=== PATIENT | male | born 1975 | race Caucasian/White ===

== ENCOUNTER 2022-02-02 09:24 | Inpatient (IN) | payer OTHER ==
[~2022-02-02] VITALS: Ht 182.9 cm; Wt 69.0 kg
[2022-02-02] MEDS ORDERED: IV NORMAL SALINE 1000ML BAG 1,000 ML IV ONE (10:00)
--- NOTE | 2022-02-02 10:04 | PHYS DOC ---
Past Medical History Additional Past Medical Histor: POLYSYSTIC KIDNEY DISEASE Past Surgical History: Other Additional Past Surgical Histo: HERNIA, VASCECTOMY Smoking Status: Never Smoker Alcohol Use: None Drug Use: None General Adult EDM: Chief Complaint: DIZZY/LIGHT HEADED HPI: HPI: Patient is a 46-year-old male that presents today after syncopal episode on Saturday. Patient states that he was in mediation talks with his on Saturday for approximately 6 hours says that he was leaving the room, with peanuts which she was snacking on during the talks, he said he woke up on the floor. Patient does not recall if he had any meals that day he states that he is currently going through a divorce and he has not been eating regularly he says he drinks approximately 1 gallon of water a day, and he says he talked to his daughter who is a nurse and talk to his primary care physician and they both recommended that he come to the emergency department for evaluation today. Patient denies chest pain, shortness of air, nausea vomiting, or fever and chills. Patient does not have a past medical history of heart disease or hypertension, he does have a history of polycystic kidney disease. Review of Systems: Review of Systems: Constitutional: Denies fever or chills. [] Eyes: Denies change in visual acuity. [] HENT: Denies nasal congestion or sore throat. [] Respiratory: Denies cough or shortness of breath. [] Cardiovascular: Denies chest pain or edema. [] GI: Denies abdominal pain, nausea, vomiting, bloody stools or diarrhea. [] : Denies dysuria. [] Musculoskeletal: Denies back pain or joint pain. [] Integument: Denies rash. [] Neurologic: syncopal episode Denies headache, focal weakness or sensory changes. [] Endocrine: Denies polyuria or polydipsia. [] Lymphatic: Denies swollen glands. [] Psychiatric: Denies depression or anxiety. [] Heart Score: C/O Chest Pain: N/A Risk Factors: Risk Factors: DM, Current or recent (<one month) smoker, HTN, HLP, family history of CAD, obesity. Risk Scores: Score 0 - 3: 2.5% MACE over next 6 weeks - Discharge Home Score 4 - 6: 20.3% MACE over next 6 weeks - Admit for Clinical Observation Score 7 - 10: 72.7% MACE over next 6 weeks - Early Invasive Strategies Current Medications: Current Medications Medications (Trade) Dose Ordered Sig/[facility] Start Time Stop Time Status Last Admin Dose Admin Sodium Chloride 1,000 ml @ 999 mls/hr 1X ONCE 02/02/22 10:00 02/02/22 11:00 Allergies: Allergies: Allergies Coded Allergies Type Severity Reaction Last Updated Verified No Known Drug Allergies 02/02/22 No Physical Exam: PE: Constitutional: Well developed, well nourished, no acute distress, non-toxic appearance. [] HENT: Normocephalic, atraumatic, bilateral external ears normal, oropharynx moist, no oral exudates, nose normal. [] Eyes: PERRLA, EOMI, conjunctiva normal, no discharge. [] Neck: Normal range of motion, no tenderness, supple, no stridor. [] Cardiovascular:Heart rate regular rhythm, no murmur [] Lungs & Thorax: Bilateral breath sounds clear to auscultation [] Abdomen: Bowel sounds normal, soft, no tenderness, no masses, no pulsatile masses. [] Skin: Warm, dry, no erythema, no rash. [] Back: No tenderness, no CVA tenderness. [] Extremities: No tenderness, no cyanosis, no clubbing, ROM intact, no edema., Neurologic: Alert and oriented X 3, normal motor function, normal sensory function, no focal deficits noted. [] Psychologic: Affect normal, judgement normal, mood normal. [] Current Patient Data: Labs: Laboratory Tests Test 02/02/22 09:50 02/02/22 10:00 02/02/22 12:37 Urine Collection Type Unknown Urine Color Yellow Urine Clarity Clear Urine pH 5.5 Urine Specific [place] 1.025 Urine Protein Negative mg/dL Urine Glucose (UA) Negative mg/dL Urine Ketones (Stick) >=80 mg/dL Urine Blood Trace Urine Nitrite Negative Urine Bilirubin Small Urine Urobilinogen Dipstick 0.2 mg/dL Urine Leukocyte Esterase Negative Urine RBC 0 /HPF Urine WBC 0 /HPF Urine Squamous Epithelial Cells Few /LPF Urine Bacteria 0 /HPF Urine Hyaline Casts Occasional /HPF Urine Opiates Screen Neg Urine Methadone Screen Neg Urine Barbiturates Neg Urine Phencyclidine Screen Neg Urine Amphetamine/Methamphetamine Neg Urine Benzodiazepines Screen Neg Urine Cocaine Screen Neg Urine Cannabinoids Screen Neg Urine Ethyl Alcohol Neg White Blood Count 4.9 x10^3/uL Red Blood Count 5.64 x10^6/uL Hemoglobin 16.4 g/dL Hematocrit 48.6 % Mean Corpuscular Volume 86 fL Mean Corpuscular Hemoglobin 29 pg Mean Corpuscular Hemoglobin Concent 34 g/dL Red Cell Distribution Width 13.3 % Platelet Count 330 x10^3/uL Neutrophils (%) (Auto) 64 % Lymphocytes (%) (Auto) 26 % Monocytes (%) (Auto) 6 % Eosinophils (%) (Auto) 3 % Basophils (%) (Auto) 1 % Neutrophils # (Auto) 3.2 x10^3/uL Lymphocytes # (Auto) 1.3 x10^3/uL Monocytes # (Auto) 0.3 x10^3/uL Eosinophils # (Auto) 0.2 x10^3/uL Basophils # (Auto) 0.0 x10^3/uL D-Dimer (Maritza) < 0.27 ug/mlFEU Sodium Level 137 mmol/L Potassium Level 4.3 mmol/L Chloride Level 97 mmol/L Carbon Dioxide Level 17 mmol/L Anion Gap 23 Blood Urea Nitrogen 15 mg/dL Creatinine 1.2 mg/dL Estimated GFR (Cockcroft-Gault) 65.5 BUN/Creatinine Ratio 13 Glucose Level 66 mg/dL Calcium Level 9.4 mg/dL Total Bilirubin 0.7 mg/dL Aspartate Amino Transf (AST/SGOT) 26 U/L Alanine Aminotransferase (ALT/SGPT) 21 U/L Alkaline Phosphatase 73 U/L Total Protein 9.3 g/dL Albumin 5.0 g/dL Albumin/Globulin Ratio 1.2 Thyroid Stimulating Hormone (TSH) 2.101 uIU/mL Free Triiodothyronine (T3) pg/mL 2.11 pg/mL SARS-CoV-2 Antigen (Rapid) Negative Current Medications Medications (Trade) Dose Ordered Sig/Mary Beth Route PRN Reason Start Time Stop Time Status Last Admin Dose Admin Sodium Chloride 1,000 ml @ 999 mls/hr 1X ONCE IV 02/02/22 10:00 02/02/22 11:00 DC 02/02/22 10:03 Atropine Sulfate (ATROPINE 0.5mg SYRINGE) 0.5 mg STK-MED ONCE .ROUTE 02/02/22 10:08 02/02/22 10:09 DC Atropine Sulfate (ATROPINE 1mg SYRINGE) 1 mg STK-MED ONCE .ROUTE 02/02/22 10:09 02/02/22 10:10 DC Atropine Sulfate (ATROPINE 1mg SYRINGE) 1 mg 1X ONCE IV 02/02/22 10:30 02/02/22 10:31 DC 02/02/22 10:13 Vital Signs: Vital Signs Date Time Temp Pulse Resp B/P (MAP) Pulse Ox O2 Delivery O2 Flow Rate FiO2 02/02/22 19:28 Room Air 02/02/22 19:24 98.1 60 18 114/72 (86) 100 Room Air 98.1 02/02/22 15:00 97.3 67 18 110/64 (79) 100 Room Air 97.3 02/02/22 13:40 Room Air 02/02/22 12:52 82 17 111/89 (96) 100 Room Air 02/02/22 12:22 82 116/74 (88) 100 Room Air 02/02/22 11:52 102 134/69 (90) 100 Room Air 02/02/22 11:22 72 98/63 (75) 100 Room Air 02/02/22 10:52 84 101/68 (79) 100 Room Air 02/02/22 10:22 100 19 107/68 (81) 98 Room Air 02/02/22 10:10 34 111/81 (91) 97 Room Air 02/02/22 09:52 128/91 (103) 93 Room Air 02/02/22 09:24 98.7 88 17 159/85 (109) 98 Room Air 98.7 Vital Signs Date Time Temp Pulse Resp B/P (MAP) Pulse Ox O2 Delivery O2 Flow Rate FiO2 02/02/22 09:24 98.7 88 17 159/85 (109) 98 Room Air 98.7 EKG: EKG: EKG #1 EKG done at [address] Last at 934 shows sinus rhythm with no ectopy at a rate of 80 CO interval of 136 ms with a QTC of 423 ms no STEMI EKG #2 EKG [place] [address] Last at 1009 shows a rate of 30 sinus bradycardia symptomatic EKG #3 EKG done at [address] Last at 1015 shows sinus tachycardia no ectopy at a rate of 108 with a CO interval of 144 ms with a QTC of 459 ms. No STEMI [] Radiology/Procedures: Radiology/Procedures: [REASON: syncope, NOT READY@1018 PROCEDURE: CHEST AP ONLY XR CHEST 1V History: Syncope Comparison: None. Technique: AP radiograph of the chest. Findings: The lungs are hyperinflated. No airspace consolidation, pleural effusion or pneumothorax. The cardiomediastinal silhouette and pulmonary vasculature are within normal limits. No acute osseous abnormality. Soft tissues are unremarkable. Resuscitation pads overlie the chest. Impression: 1. No acute cardiopulmonary process. Electronically signed by: Nguyễn Chahal MD (02/02/2022 10:40 AM) [id number]] Course & Med Decision Making: Course & Med Decision Making Pertinent Labs and Imaging studies reviewed. (See chart for details) 1010 patient was found to have a heart rate less then 35 bpm we went to the bedside EKG was done shows a rate of between 28-32 bpm, Dr. Flores was at bedside, 1 mg of atropine was given with a desired result of a heart rate increasing to 85 bpm. Patient was presyncopal and diaphoretic during the episode states he did not feel well and states he felt very similar to what he did 2 days ago when he had a syncopal episode. Cardiology paged. 1059 spoke to cardiology regarding this patient. [id number] Florian from hospitalist service and reviewed this case with him and he is agreeable to admitting the patient with a consultation to cardiology for symptomatic bradycardia. Spoke to patient he is agreeable to admitting. Radhames Disclaimer: Radhames Disclaimer: This electronic medical record was generated, in whole or in part, using a voice recognition dictation system. Departure Departure Impression: Primary Impression: Syncope Qualified Codes: R55 - Syncope and collapse Additional Impression: Bradycardia Disposition: ADMITTED INPATIENT Admitting Physician: JUAN Condition: GUARDED LILLY RUIZ APRN Feb 02, 2022 10:03
[2022-02-02] MEDS ORDERED: ATROPINE 0.5 MG/5 ML DISP.SYRINGE. ONE (10:08)
[2022-02-02] MEDS ORDERED: ATROPINE 1 MG/10 ML DISP.SYRINGE. ONE (10:09)
[2022-02-02 10:19] LABS: BARBITURATES NEG (NEG); BENZODIAZEPINES NEG (NEG); CANNABINOIDS NEG (NEG); COCAINE NEG (NEG); METHADONE NEG (NEG); OPIATES NEG (NEG); PHENCYCLIDINE NEG (NEG)
[2022-02-02 10:20] LABS: AMPHETAMINE/METHAMPHETAMINE NEG (NEG)
[2022-02-02] MEDS ORDERED: ATROPINE 1 MG/10 ML DISP.SYRINGE. IV ONE (10:30)
[2022-02-02 10:35] LABS: ALBUMIN/GLOBULIN RATIO 1.2 (1.0-1.7); CALCIUM 9.4 mg/dL (8.5-10.1); CREATININE 1.2 mg/dL (0.7-1.3); GFR 65.5; POTASSIUM 4.3 mmol/L (3.5-5.1); TOTAL BILIRUBIN 0.7 mg/dL (0.2-1.0); TOTAL PROTEIN 9.3 g/dL (6.4-8.2)
--- NOTE | 2022-02-02 10:42 | RAD ---
XR CHEST 1V History: Syncope Comparison: None. Technique: AP radiograph of the chest. Findings: The lungs are hyperinflated. No airspace consolidation, pleural effusion or pneumothorax. The cardiom ediastinal silhouette and pulmonary vasculature are within normal limits. No acute osseous abnormalit y. Soft tissues are unremarkable. Resuscitation pads overlie the chest. Impression: 1. No acute cardiopulmonary process. Electronically signed by: Nguyễn Chahal MD (02/02/2022 10:40 AM) [id number]
[2022-02-02 10:50] LABS: BILIRUBIN,URINE SMALL (NEG); CLARITY,URINE CLEAR; COLOR,URINE YELLOW; NITRITE,URINE NEGATIVE (NEG); PH,URINE 5.5 (<5.0-8.0); PROTEIN,URINE NEGATIVE (NEG-TRACE); UROBILINOGEN,URINE 0.2 mg/dL (0.2 mg/dL)
[2022-02-02 10:52] LABS: BASO % 1 % (0-3); EOS # 0.2 x10^3/uL (0.0-0.7); EOS % 3 % (0-3); HEMATOCRIT 48.6 % (39.0-53.0); HEMOGLOBIN 16.4 g/dL (13.0-17.5); LYMPH # 1.3 x10^3/uL (1.0-4.8); LYMPH % 26 % (24-48); MEAN CORPUSCULAR HEMOGLOBIN 29 pg (25-35); MEAN CORPUSCULAR HGB CONC 34 g/dL (31-37); MEAN CORPUSCULAR VOLUME 86 fL (79-100); MONO # 0.3 x10^3/uL (0.0-1.1); MONO % 6 % (0-9); NEUT # 3.2 x10^3/uL (1.8-7.7); NEUT % 64 % (31-73); PLATELET COUNT 330 x10^3/uL (140-400); RED BLOOD COUNT 5.64 x10^6/uL (4.30-5.70); RED CELL DISTRIBUTION WIDTH 13.3 % (11.5-14.5); WHITE BLOOD COUNT 4.9 x10^3/uL (4.0-11.0)
[2022-02-02 10:53] LABS: BACTERIA,URINE 0 /HPF (0-FEW); HYALINE CASTS, URINE OCCASIONAL /HPF; RBC,URINE 0 /HPF (0-2); WBC,URINE 0 /HPF (0-4)
--- NOTE | 2022-02-02 10:59 | PDOC2 ---
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 Reports passing out while having an "heavy" conversation with his . Unclear duration but he started not feeling well at that time and dizzy then fell to the floor with no apparent injury. No seizure like symptoms. He does have occasional dizziness but not long lasting and this is the fiirst time he passed out. He finally called his PCP today and was told to go to ED. He was getting SL and IV when he felt that his surrounding was blacking out and did not feel and about to pass out and his HR was SB in the 20s and was given atropine which then corrected his HR to SR. No recent falls or injury. He said he possibly had covid-19 in 2019 and his flu like symptoms lasted for a week with loss of taste or smell. No prior hx of CAD,VTE, or arrhythmias. PAST MEDICAL HISTORY Past Medical History No pertinent history Renal/: Other (PKD) PAST SURGICAL HISTORY Past Surgical History: Hernia Repair, Other (vasecomy) FAMILY HISTORY Family History: Heart Disease (grandparents) SOCIAL HISTORY Smoke: No ALCOHOL: none Drugs: None Lives: with Family CURRENT MEDICATIONS CURRENT MEDICATIONS Current Medications Medications (Trade) Dose Ordered Sig/Mary Beth Route PRN Reason Start Time Stop Time Status Last Admin Dose Admin Sodium Chloride 1,000 ml @ 999 mls/hr 1X ONCE IV 02/02/22 10:00 02/02/22 11:00 02/02/22 10:03 Atropine Sulfate (ATROPINE 1mg SYRINGE) 1 mg 1X ONCE IV 02/02/22 10:30 02/02/22 10:31 DC 02/02/22 10:13 ALLERGIES ALLERGIES: Coded Allergies: No Known Drug Allergies (Unverified , 02/02/22) ROS Review of System 14 point ROS evaluated with pertinent positives noted per HPI PHYSICAL EXAM General: Alert, Oriented X3, Cooperative, No acute distress HEENT: Atraumatic, Mucous membr. moist/pink Lungs: Clear to auscultation, Normal air movement Heart: Regular rate, Normal S1, Normal S2, No murmurs Abdomen: Soft, No tenderness Extremities: No cyanosis, No edema Skin: No breakdown, No significant lesion Neuro: Normal speech, Sensation intact Psych/Mental Status: Mental status NL, Mood NL MUSCULOSKELETAL: Full range of motion without pain VITALS/I&O VITALS/I&O: Vital Signs Date Time Temp Pulse Resp B/P (MAP) Pulse Ox O2 Delivery O2 Flow Rate FiO2 02/02/22 10:22 100 19 107/68 (81) 98 Room Air 02/02/22 09:24 98.7 98.7 LABS Lab: Laboratory Tests Test 02/02/22 09:50 02/02/22 10:00 Urine Collection Type Unknown Urine Color Yellow Urine Clarity Clear Urine pH 5.5 (<5.0-8.0) Urine Specific [place] 1.025 (1.000-1.030) Urine Protein Negative mg/dL (NEG-TRACE) Urine Glucose (UA) Negative mg/dL (NEG) Urine Ketones (Stick) >=80 mg/dL (NEG) Urine Blood Trace (NEG) Urine Nitrite Negative (NEG) Urine Bilirubin Small (NEG) Urine Urobilinogen Dipstick 0.2 mg/dL (0.2 mg/dL) Urine Leukocyte Esterase Negative (NEG) Urine RBC 0 /HPF (0-2) Urine WBC 0 /HPF (0-4) Urine Squamous Epithelial Cells Few /LPF Urine Bacteria 0 /HPF (0-FEW) Urine Hyaline Casts Occasional /HPF Urine Opiates Screen Neg (NEG) Urine Methadone Screen Neg (NEG) Urine Barbiturates Neg (NEG) Urine Phencyclidine Screen Neg (NEG) Urine Amphetamine/Methamphetamine Neg (NEG) Urine Benzodiazepines Screen Neg (NEG) Urine Cocaine Screen Neg (NEG) Urine Cannabinoids Screen Neg (NEG) Urine Ethyl Alcohol Neg (NEG) D-Dimer (Maritza) < 0.27 ug/mlFEU Sodium Level 137 mmol/L (136-145) Potassium Level 4.3 mmol/L (3.5-5.1) Chloride Level 97 mmol/L (98-107) L Carbon Dioxide Level 17 mmol/L (21-32) L Anion Gap 23 (6-14) H Blood Urea Nitrogen 15 mg/dL (8-26) Creatinine 1.2 mg/dL (0.7-1.3) Estimated GFR (Cockcroft-Gault) 65.5 BUN/Creatinine Ratio 13 (6-20) Glucose Level 66 mg/dL (70-99) L Calcium Level 9.4 mg/dL (8.5-10.1) Total Bilirubin 0.7 mg/dL (0.2-1.0) Aspartate Amino Transferase (AST) 26 U/L (15-37) Alanine Aminotransferase (ALT) 21 U/L (16-63) Alkaline Phosphatase 73 U/L (46-116) Total Protein 9.3 g/dL (6.4-8.2) H Albumin 5.0 g/dL (3.4-5.0) Albumin/Globulin Ratio 1.2 (1.0-1.7) Laboratory Tests 02/02/22 10:00 ASSESSMENT/PLAN ASSESSMENT/PLAN 1. Symptomatic sinsu bradycardia: corrected with atropine 2. Syncope with nontraumatic fall: occurred 2 days ago 3. Hypoglycemia: has not been eating well in the last 3 days. noted BG at 66. per PCP 4. Anion gap metabolic acidosis Recommendations 1. He does have vasovagal component but with profound symptoms. He will need a PPM and discussed this with him but at this time he is refusing. Discussed risks of not having a PPM but refuses. Will arrange for outpt ILR 2. Obtain TSH, TTE 3. Monitor rhythm overnight. 4. IVF received CHAD BONE MD 02/02/22 1325: CARDIAC CONSULT ASSESSMENT/PLAN ASSESSMENT/PLAN Patient seen and examined. Agree with INTERIOR DESIGN COORDINATOR's assessment and plan. Clinical picture consistent with vasovagal etiology but patient seems to have recurrent profound symptomatic bradycardia The option of permanent pacemaker implantation was discussed but he would like to hold off on that. We will plan for Loop recorder implantation as an outpatient for more prolonged monitoring Check 2D echo to assess LV systolic function Thank you for your consultation JOYCE KOCH APRN Feb 02, 2022 10:59 CHAD BONE MD Feb 02, 2022 13:25
[2022-02-02 11:06] LABS: THYROID STIM HORMONE (TSH) 2.101 uIU/mL (0.358-3.74)
--- NOTE | 2022-02-02 11:32 | PDOC1 ---
History and Physical Date of Service: DOS: DATE: 02/02/22 TIME: 11:27 Chief Complaint: Chief Complain: Syncope History of Present Illness: HPI: 46-year-old male with no significant past medical history except for polycystic kidney disease who comes in after a syncopal episode on Saturday. He apparently was having an argument with his when he left his room and caring a plate of peanuts and next thing he remembered he was on the floor and the drop of his plate. Patient states that he is well-hydrated and talk to his nurse and primary care doctor and they recommended for him to come evaluated to the emergency department today. Denies any prodromal or post syncopal symptoms. Currently denies any chest pain, shortness of breath, dizziness, palpitations, nausea vomiting, fevers or chills. No recent illness or sick contacts or travel. Of note, patient was recently seen about 3 years ago for his PKD and did a complete work-up which showed his heart was completely normal. Past Medical/Surgical History: PMH/PSH: Additional Past Medical Histor: POLYSYSTIC KIDNEY DISEASE Past Surgical History: HERNIA, VASCECTOMY Allergies: Allergies: Coded Allergies: No Known Drug Allergies (Unverified , 02/02/22) Family History: Family History: Reviewed with no relative findings in the chart Social History: Social History: Smoking Status: Never Smoker Alcohol Use: None Drug Use: None Current Medications: Current Medications Current Medications Sodium Chloride 1,000 ml @ 999 mls/hr 1X ONCE IV Last administered on 02/02/22at 10:03; Start 02/02/22 at 10:00; Stop 02/02/22 at 11:00; Status DC Atropine Sulfate (ATROPINE 0.5mg SYRINGE) 0.5 mg STK-MED ONCE .ROUTE ; Start 02/02/22 at 10:08; Stop 02/02/22 at 10:09; Status DC Atropine Sulfate (ATROPINE 1mg SYRINGE) 1 mg STK-MED ONCE .ROUTE ; Start 02/02/22 at 10:09; Stop 02/02/22 at 10:10; Status DC Atropine Sulfate (ATROPINE 1mg SYRINGE) 1 mg 1X ONCE IV Last administered on 02/02/22at 10:13; Start 02/02/22 at 10:30; Stop 02/02/22 at 10:31; Status DC ROS: Review of Systems Review of System REVIEW OF SYSTEMS: GENERAL: Positive for dizziness SKIN: No bruising, hair changes or rashes. EYES: No blurred, double or loss of vision. NOSE AND THROAT: No history of nosebleeds, hoarseness or sore throat. HEART: No history of palpitations, chest pain or shortness of breath on exertion. LUNGS: Denies cough, hemoptysis, wheezing or shortness of breath. GASTROINTESTINAL: Denies changes in appetite, nausea, vomiting, diarrhea or constipation. GENITOURINARY: No history of frequency, urgency, hesitancy or nocturia. NEUROLOGIC: Denies history of numbness, tingling, or tremor. PSYCHIATRIC: No history of panic, anxiety or depression. ENDOCRINE: No history of heat or cold intolerance, polyuria or polydipsia. EXTREMITIES: Denies joint pain, pain on walking or stiffness. Physical Exam: Vital Signs: Vital Signs Date Time Temp Pulse Resp B/P (MAP) Pulse Ox O2 Delivery O2 Flow Rate FiO2 02/02/22 10:22 100 19 107/68 (81) 98 Room Air 02/02/22 09:24 98.7 98.7 Physcial Exam: General: Well developed, well nourished, no acute distress, well appearing HEENT: Pupils equally round and reactive to light, EOMI, no discharge, normal conjunctiva Neck: Supple, no nuchal rigidity, no JVD, trachea midline, no tenderness Cardiac: RRR, no murmurs, no gallops, no rubs Chest/Lungs: CTAB, no wheeze, no rhonchi, no crackles Abdomen: soft, non-distended, no guarding, no peritoneal signs, non-tender Back: No tenderness Extremities: no edema, pulses intact, non-tender,capillary refill <3 sec bilateral upper and lower extremities, Neuro: Alert and oriented x 4, no focal deficits, normal speech Labs: Labs: Laboratory Tests Test 02/02/22 09:50 02/02/22 10:00 Urine Collection Type Unknown Urine Color Yellow Urine Clarity Clear Urine pH 5.5 (<5.0-8.0) Urine Specific [place] 1.025 (1.000-1.030) Urine Protein Negative mg/dL (NEG-TRACE) Urine Glucose (UA) Negative mg/dL (NEG) Urine Ketones (Stick) >=80 mg/dL (NEG) Urine Blood Trace (NEG) Urine Nitrite Negative (NEG) Urine Bilirubin Small (NEG) Urine Urobilinogen Dipstick 0.2 mg/dL (0.2 mg/dL) Urine Leukocyte Esterase Negative (NEG) Urine RBC 0 /HPF (0-2) Urine WBC 0 /HPF (0-4) Urine Squamous Epithelial Cells Few /LPF Urine Bacteria 0 /HPF (0-FEW) Urine Hyaline Casts Occasional /HPF Urine Opiates Screen Neg (NEG) Urine Methadone Screen Neg (NEG) Urine Barbiturates Neg (NEG) Urine Phencyclidine Screen Neg (NEG) Urine Amphetamine/Methamphetamine Neg (NEG) Urine Benzodiazepines Screen Neg (NEG) Urine Cocaine Screen Neg (NEG) Urine Cannabinoids Screen Neg (NEG) Urine Ethyl Alcohol Neg (NEG) White Blood Count 4.9 x10^3/uL (4.0-11.0) Red Blood Count 5.64 x10^6/uL (4.30-5.70) Hemoglobin 16.4 g/dL (13.0-17.5) Hematocrit 48.6 % (39.0-53.0) Mean Corpuscular Volume 86 fL (79-100) Mean Corpuscular Hemoglobin 29 pg (25-35) Mean Corpuscular Hemoglobin Concent 34 g/dL (31-37) Red Cell Distribution Width 13.3 % (11.5-14.5) Platelet Count 330 x10^3/uL (140-400) Neutrophils (%) (Auto) 64 % (31-73) Lymphocytes (%) (Auto) 26 % (24-48) Monocytes (%) (Auto) 6 % (0-9) Eosinophils (%) (Auto) 3 % (0-3) Basophils (%) (Auto) 1 % (0-3) Neutrophils # (Auto) 3.2 x10^3/uL (1.8-7.7) Lymphocytes # (Auto) 1.3 x10^3/uL (1.0-4.8) Monocytes # (Auto) 0.3 x10^3/uL (0.0-1.1) Eosinophils # (Auto) 0.2 x10^3/uL (0.0-0.7) Basophils # (Auto) 0.0 x10^3/uL (0.0-0.2) D-Dimer (Maritza) < 0.27 ug/mlFEU Sodium Level 137 mmol/L (136-145) Potassium Level 4.3 mmol/L (3.5-5.1) Chloride Level 97 mmol/L (98-107) Carbon Dioxide Level 17 mmol/L (21-32) Anion Gap 23 (6-14) Blood Urea Nitrogen 15 mg/dL (8-26) Creatinine 1.2 mg/dL (0.7-1.3) Estimated GFR (Cockcroft-Gault) 65.5 BUN/Creatinine Ratio 13 (6-20) Glucose Level 66 mg/dL (70-99) Calcium Level 9.4 mg/dL (8.5-10.1) Total Bilirubin 0.7 mg/dL (0.2-1.0) Aspartate Amino Transf (AST/SGOT) 26 U/L (15-37) Alanine Aminotransferase (ALT/SGPT) 21 U/L (16-63) Alkaline Phosphatase 73 U/L (46-116) Total Protein 9.3 g/dL (6.4-8.2) Albumin 5.0 g/dL (3.4-5.0) Albumin/Globulin Ratio 1.2 (1.0-1.7) Thyroid Stimulating Hormone (TSH) 2.101 uIU/mL (0.358-3.74) Free Triiodothyronine (T3) pg/mL 2.11 pg/mL (2.18-3.98) Laboratory Tests Test 02/02/22 09:50 02/02/22 10:00 Urine Collection Type Unknown Urine Color Yellow Urine Clarity Clear Urine pH 5.5 (<5.0-8.0) Urine Specific [place] 1.025 (1.000-1.030) Urine Protein Negative mg/dL (NEG-TRACE) Urine Glucose (UA) Negative mg/dL (NEG) Urine Ketones (Stick) >=80 mg/dL (NEG) Urine Blood Trace (NEG) Urine Nitrite Negative (NEG) Urine Bilirubin Small (NEG) Urine Urobilinogen Dipstick 0.2 mg/dL (0.2 mg/dL) Urine Leukocyte Esterase Negative (NEG) Urine RBC 0 /HPF (0-2) Urine WBC 0 /HPF (0-4) Urine Squamous Epithelial Cells Few /LPF Urine Bacteria 0 /HPF (0-FEW) Urine Hyaline Casts Occasional /HPF Urine Opiates Screen Neg (NEG) Urine Methadone Screen Neg (NEG) Urine Barbiturates Neg (NEG) Urine Phencyclidine Screen Neg (NEG) Urine Amphetamine/Methamphetamine Neg (NEG) Urine Benzodiazepines Screen Neg (NEG) Urine Cocaine Screen Neg (NEG) Urine Cannabinoids Screen Neg (NEG) Urine Ethyl Alcohol Neg (NEG) White Blood Count 4.9 x10^3/uL (4.0-11.0) Red Blood Count 5.64 x10^6/uL (4.30-5.70) Hemoglobin 16.4 g/dL (13.0-17.5) Hematocrit 48.6 % (39.0-53.0) Mean Corpuscular Volume 86 fL (79-100) Mean Corpuscular Hemoglobin 29 pg (25-35) Mean Corpuscular Hemoglobin Concent 34 g/dL (31-37) Red Cell Distribution Width 13.3 % (11.5-14.5) Platelet Count 330 x10^3/uL (140-400) Neutrophils (%) (Auto) 64 % (31-73) Lymphocytes (%) (Auto) 26 % (24-48) Monocytes (%) (Auto) 6 % (0-9) Eosinophils (%) (Auto) 3 % (0-3) Basophils (%) (Auto) 1 % (0-3) Neutrophils # (Auto) 3.2 x10^3/uL (1.8-7.7) Lymphocytes # (Auto) 1.3 x10^3/uL (1.0-4.8) Monocytes # (Auto) 0.3 x10^3/uL (0.0-1.1) Eosinophils # (Auto) 0.2 x10^3/uL (0.0-0.7) Basophils # (Auto) 0.0 x10^3/uL (0.0-0.2) D-Dimer (Maritza) < 0.27 ug/mlFEU Sodium Level 137 mmol/L (136-145) Potassium Level 4.3 mmol/L (3.5-5.1) Chloride Level 97 mmol/L (98-107) Carbon Dioxide Level 17 mmol/L (21-32) Anion Gap 23 (6-14) Blood Urea Nitrogen 15 mg/dL (8-26) Creatinine 1.2 mg/dL (0.7-1.3) Estimated GFR (Cockcroft-Gault) 65.5 BUN/Creatinine Ratio 13 (6-20) Glucose Level 66 mg/dL (70-99) Calcium Level 9.4 mg/dL (8.5-10.1) Total Bilirubin 0.7 mg/dL (0.2-1.0) Aspartate Amino Transf (AST/SGOT) 26 U/L (15-37) Alanine Aminotransferase (ALT/SGPT) 21 U/L (16-63) Alkaline Phosphatase 73 U/L (46-116) Total Protein 9.3 g/dL (6.4-8.2) Albumin 5.0 g/dL (3.4-5.0) Albumin/Globulin Ratio 1.2 (1.0-1.7) Thyroid Stimulating Hormone (TSH) 2.101 uIU/mL (0.358-3.74) Free Triiodothyronine (T3) pg/mL 2.11 pg/mL (2.18-3.98) Images: Images PROCEDURE: CHEST AP ONLY XR CHEST 1V History: Syncope Comparison: None. Technique: AP radiograph of the chest. Findings: The lungs are hyperinflated. No airspace consolidation, pleural effusion or pneumothorax. The cardiomediastinal silhouette and pulmonary vasculature are within normal limits. No acute osseous abnormality. Soft tissues are unremarkable. Resuscitation pads overlie the chest. Impression: 1. No acute cardiopulmonary process. Assessment/Plan Assessment/Plan Syncope due to vasovagal etiology, will rule out cardiovascular etiology Symptomatic bradycardia History of polycystic kidney disease Anion gap metabolic acidosis Admit to medicine for further work-up considering his history of polycystic kidney disease, will likely need a TTE to rule out valvular pathology or aneurysms Cardiology consult have is recommended for outpatient loop recorder which I believe that is a reasonable option given that the patient is currently refusing pacemaker placement Pending limited echocardiogram Continue telemetry monitoring Fall precautions Orthostatic vital signs Hold all centrally acting medications Nephrology consulted for acidosis Pending renal ultrasound SCD and ambulation for DVT prophylaxis Cardiac diet Full code Discussed with RN and SW Disposition inpatient management as above Surrogate decision maker is the Justifications for Admission Other Justification GIBRAN VELAZCO MD Feb 02, 2022 11:32
[2022-02-02] MEDS ORDERED: ZOLPIDEM 5 MG TABLET. PO PRN (11:45)
[2022-02-02] MEDS ORDERED: diphenhydrAMINE HCL 25 MG CAPSULE PO PRN ×2 (11:45)
[2022-02-02] MEDS ORDERED: ACETAMINOPHEN 325 MG TABLET. PO PRN (11:45)
[2022-02-02] MEDS ORDERED: LORazepam 0.5 MG TABLET PO PRN (11:45)
[2022-02-02] MEDS ORDERED: diphenhydrAMINE 50 MG/ML VIAL IVP PRN (11:45)
[2022-02-02] MEDS ORDERED: DOCUSATE SODIUM 100 MG CAPSULE. PO PRN (11:45)
[2022-02-02] MEDS ORDERED: SENNOSIDES 8.6 MG TABLET PO PRN (11:45)
[2022-02-02] MEDS ORDERED: PROCHLORPERAZINE 10 MG/2 ML VIAL. IV PRN (11:45)
[2022-02-02] MEDS ORDERED: DEXTROSE 50% 25 GM / 50ML DISP.SYRIN. IV PRN (11:45)
[2022-02-02] MEDS ORDERED: ONDANSETRON PF 4 MG/2 ML VIAL. IVP PRN (11:45)
[2022-02-02] MEDS: IV NORMAL SALINE 1000ML BAG 1,000 ML IV SCH ×2 (11:45→21:33)
[2022-02-02] MEDS ORDERED: ENOXAPARIN 40 MG/0.4 ML SYRINGE. SQ SCH (12:00)
--- NOTE | 2022-02-02 12:05 | EKG ---
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
[2022-02-02 15:00] VITALS: BP 110/64
--- NOTE | 2022-02-02 16:28 | RAD ---
US RENAL BILAT History: Polycystic kidney disease. Comparison: None. Technique: Sonographic examination of the kidneys and bladder. Findings: Right kidney: 12.4 cm length. Numerous right renal cysts, measuring up to 2.5 cm diameter. No mass or hydronephrosis. Left kidney: 13.7 cm length. Numerous left renal cysts measuring up to 3.1 cm. no mass or hydronephro sis. Bladder: No distal ureterectasis. No focal wall abnormality. Bilateral ureteral jets identified. Aorta/IVC: Visualized portions are unremarkable. Other: No ascites. Impression: 1. Bilateral renal cysts. No hydronephrosis. Electronically signed by: Nguyễn Chahal MD (02/02/2022 4:26 PM) [id number]
[2022-02-02 19:24] VITALS: BP 114/72
[2022-02-02 23:12] VITALS: BP 123/69
[2022-02-03 03:17] VITALS: BP 114/59
[2022-02-03] MEDS ORDERED: ATROPINE 1 MG/10 ML DISP.SYRINGE. ONE (06:00)
[2022-02-03 07:00] VITALS: BP 140/72
--- NOTE | 2022-02-03 09:44 | PDOC ---
PROGRESS NOTES Date of Service: DATE: 02/03/22 TIME: 09:44 Subjective Subjective No new issues overnight, feeling better Objective Objective Vital Signs Date Time Temp Pulse Resp B/P (MAP) Pulse Ox O2 Delivery O2 Flow Rate FiO2 02/03/22 08:00 Room Air 02/03/22 07:00 98.2 70 18 140/72 (94) 98 98.2 Intake and Output 02/03/22 07:00 Intake Total 1482.8 ml Output Total 725 ml Balance 757.8 ml Intake Oral 150 ml IV Total 1332.8 ml Output Urine Total 725 ml Physical Exam Abdomen: Soft, No tenderness Heart: Regular rate, Normal S1, Normal S2, No murmurs Extremities: No cyanosis, No edema General: Alert, Oriented X3, Cooperative, No acute distress HEENT: Atraumatic, Mucous membr. moist/pink Lungs: Clear to auscultation, Normal air movement MUSCULOSKELETAL: Full range of motion without pain Neuro: Normal speech, Sensation intact Psych/Mental Status: Mental status NL, Mood NL Skin: No breakdown, No significant lesion Assessment Assessment 1. Symptomatic sinus bradycardia: corrected with atropine. Telemetry did not show any further episodes. 2D echo showed normal LV systolic function. 2. Syncope with nontraumatic fall: Most probably vasovagal etiology but considering the dramatic fall in heart rate, pacemaker implantation was recommended. He however deferred this but agreed to prolonged monitoring with loop recorder implantation. 3. Hypoglycemia: has not been eating well in the last 3 days. noted BG at 66. per PCP 4. Anion gap metabolic acidosis Follow-up as scheduled Plan Plan of Care Problems Medical Problems: (1) Bradycardia Status: Acute (2) Syncope Status: Acute Comment Review of Relevant I have reviewed the following items kalani (where applicable) has been applied. Labs Laboratory Tests Test 02/02/22 09:50 02/02/22 10:00 02/02/22 12:37 Urine Collection Type Unknown Urine Color Yellow Urine Clarity Clear Urine pH 5.5 (<5.0-8.0) Urine Specific [place] 1.025 (1.000-1.030) Urine Protein Negative mg/dL (NEG-TRACE) Urine Glucose (UA) Negative mg/dL (NEG) Urine Ketones (Stick) >=80 mg/dL (NEG) Urine Blood Trace (NEG) Urine Nitrite Negative (NEG) Urine Bilirubin Small (NEG) Urine Urobilinogen Dipstick 0.2 mg/dL (0.2 mg/dL) Urine Leukocyte Esterase Negative (NEG) Urine RBC 0 /HPF (0-2) Urine WBC 0 /HPF (0-4) Urine Squamous Epithelial Cells Few /LPF Urine Bacteria 0 /HPF (0-FEW) Urine Hyaline Casts Occasional /HPF Urine Opiates Screen Neg (NEG) Urine Methadone Screen Neg (NEG) Urine Barbiturates Neg (NEG) Urine Phencyclidine Screen Neg (NEG) Urine Amphetamine/Methamphetamine Neg (NEG) Urine Benzodiazepines Screen Neg (NEG) Urine Cocaine Screen Neg (NEG) Urine Cannabinoids Screen Neg (NEG) Urine Ethyl Alcohol Neg (NEG) White Blood Count 4.9 x10^3/uL (4.0-11.0) Red Blood Count 5.64 x10^6/uL (4.30-5.70) Hemoglobin 16.4 g/dL (13.0-17.5) Hematocrit 48.6 % (39.0-53.0) Mean Corpuscular Volume 86 fL (79-100) Mean Corpuscular Hemoglobin 29 pg (25-35) Mean Corpuscular Hemoglobin Concent 34 g/dL (31-37) Red Cell Distribution Width 13.3 % (11.5-14.5) Platelet Count 330 x10^3/uL (140-400) Neutrophils (%) (Auto) 64 % (31-73) Lymphocytes (%) (Auto) 26 % (24-48) Monocytes (%) (Auto) 6 % (0-9) Eosinophils (%) (Auto) 3 % (0-3) Basophils (%) (Auto) 1 % (0-3) Neutrophils # (Auto) 3.2 x10^3/uL (1.8-7.7) Lymphocytes # (Auto) 1.3 x10^3/uL (1.0-4.8) Monocytes # (Auto) 0.3 x10^3/uL (0.0-1.1) Eosinophils # (Auto) 0.2 x10^3/uL (0.0-0.7) Basophils # (Auto) 0.0 x10^3/uL (0.0-0.2) D-Dimer (Maritza) < 0.27 ug/mlFEU Sodium Level 137 mmol/L (136-145) Potassium Level 4.3 mmol/L (3.5-5.1) Chloride Level 97 mmol/L (98-107) Carbon Dioxide Level 17 mmol/L (21-32) Anion Gap 23 (6-14) Blood Urea Nitrogen 15 mg/dL (8-26) Creatinine 1.2 mg/dL (0.7-1.3) Estimated GFR (Cockcroft-Gault) 65.5 BUN/Creatinine Ratio 13 (6-20) Glucose Level 66 mg/dL (70-99) Calcium Level 9.4 mg/dL (8.5-10.1) Total Bilirubin 0.7 mg/dL (0.2-1.0) Aspartate Amino Transf (AST/SGOT) 26 U/L (15-37) Alanine Aminotransferase (ALT/SGPT) 21 U/L (16-63) Alkaline Phosphatase 73 U/L (46-116) Total Protein 9.3 g/dL (6.4-8.2) Albumin 5.0 g/dL (3.4-5.0) Albumin/Globulin Ratio 1.2 (1.0-1.7) Thyroid Stimulating Hormone (TSH) 2.101 uIU/mL (0.358-3.74) Free Triiodothyronine (T3) pg/mL 2.11 pg/mL (2.18-3.98) SARS-CoV-2 Antigen (Rapid) Negative (NEGATIVE) Medications Current Medications Acetaminophen (Tylenol) 650 mg PRN Q4HRS PRN PO TEMP OVER 100.4F OR MILD PAIN; Start 02/02/22 at 11:45 Atropine Sulfate (ATROPINE 0.5mg SYRINGE) 0.5 mg STK-MED ONCE .ROUTE ; Start 02/02/22 at 10:08; Stop 02/02/22 at 10:09; Status DC Atropine Sulfate (ATROPINE 1mg SYRINGE) 1 mg 1X ONCE IV Last administered on 02/02/22at 10:13; Start 02/02/22 at 10:30; Stop 02/02/22 at 10:31; Status DC Atropine Sulfate (ATROPINE 1mg SYRINGE) 1 mg STK-MED ONCE .ROUTE ; Start 02/02/22 at 10:09; Stop 02/02/22 at 10:10; Status DC Dextrose (Dextrose 50%-Water Syringe) 12.5 gm PRN Q15MIN PRN IV SEE COMMENTS; Start 02/02/22 at 11:45 Diphenhydramine HCl (Benadryl) 25 mg PRN Q6HRS PRN IVP ITCHING; Start 02/02/22 at 11:45 Diphenhydramine HCl (Benadryl) 25 mg PRN Q6HRS PRN PO ITCHING; Start 02/02/22 at 11:45 Diphenhydramine HCl (Benadryl) 25 mg PRN QHS PRN PO INSOMNIA, 1st CHOICE; Start 02/02/22 at 11:45 Docusate Sodium (Colace) 100 mg PRN DAILY PRN PO HARD STOOLS; Start 02/02/22 at 11:45 Enoxaparin Sodium (Lovenox 40mg Syringe) 40 mg Q24H SQ ; Start 02/02/22 at 12:00 Lorazepam (Ativan Inj) 0.25 mg PRN Q4HRS PRN IV ANXIETY / AGITATION; Start 02/02/22 at 11:45 Lorazepam (Ativan) 0.5 mg PRN Q6HRS PRN PO ANXIETY / AGITATION; Start 02/02/22 at 11:45 Ondansetron HCl (Zofran) 4 mg PRN Q6HRS PRN IVP NAUSEA/VOMITING, 1st CHOICE; Start 02/02/22 at 11:45 Prochlorperazine Edisylate (Compazine) 10 mg PRN Q6HRS PRN IV NAUSEA/VOMITING, 2nd CHOICE; Start 02/02/22 at 11:45 Sennosides (Senna) 17.2 mg PRN BID PRN PO CONSTIPATION; Start 02/02/22 at 11:45 Sodium Chloride 1,000 ml @ 100 mls/hr Q10H IV Last administered on 02/02/22at 21:33; Start 02/02/22 at 11:45 Sodium Chloride 1,000 ml @ 999 mls/hr 1X ONCE IV Last administered on 02/02/22at 10:03; Start 02/02/22 at 10:00; Stop 02/02/22 at 11:00; Status DC Zolpidem Tartrate (Ambien) 2.5 mg PRN QHS PRN PO INSOMNIA, 2nd CHOICE; Start 02/02/22 at 11:45 Vitals/I & O Vital Sign - Last 24 Hours 02/02/22 02/02/22 02/02/22 02/02/22 09:52 10:10 10:22 10:52 Pulse 34 100 84 Resp 19 B/P (MAP) 128/91 (103) 111/81 (91) 107/68 (81) 101/68 (79) Pulse Ox 93 97 98 100 O2 Delivery Room Air Room Air Room Air Room Air 02/02/22 02/02/22 02/02/22 02/02/22 11:22 11:52 12:22 12:52 Pulse 72 102 82 82 Resp 17 B/P (MAP) 98/63 (75) 134/69 (90) 116/74 (88) 111/89 (96) Pulse Ox 100 100 100 100 O2 Delivery Room Air Room Air Room Air Room Air 02/02/22 02/02/22 02/02/22 02/02/22 13:40 15:00 19:24 19:28 Temp 97.3 98.1 97.3 98.1 Pulse 67 60 Resp 18 18 B/P (MAP) 110/64 (79) 114/72 (86) Pulse Ox 100 100 O2 Delivery Room Air Room Air Room Air Room Air 02/02/22 02/03/22 02/03/22 02/03/22 23:12 03:17 07:00 08:00 Temp 97.6 98.3 98.2 97.6 98.3 98.2 Pulse 72 63 70 Resp 16 18 18 B/P (MAP) 123/69 (87) 114/59 (77) 140/72 (94) Pulse Ox 100 99 98 O2 Delivery Room Air Room Air Room Air Room Air Intake and Output 02/02/22 02/02/22 02/03/22 15:00 23:00 07:00 Intake Total 1000 ml 482.8 ml 0 ml Output Total 400 ml 325 ml Balance 1000 ml 82.8 ml -325 ml CHAD BONE MD 5, 2022 09:44
--- NOTE | 2022-02-03 09:57 | CARD ---
MR#: [id number] Date of Study: 02/02/2022 Ordering Physician: LILLY RUIZ, Referring Physician: Shannon SALGUERO: Saurav Roldan [facility] APPROVED REPORT EXAM: Two-dimensional and M-mode echocardiogram with Doppler and color Doppler. Other Information Quality : FairHR: 69bpm Rhythm : NSR INDICATION Syncope Bradycardia 2D DIMENSIONS Left Atrium(2D)2.7 (1.6-4.0cm)IVSd0.8 (0.7-1.1cm) Aortic Root(2D)3.6 (2.0-3.7cm)LVDd4.3 (3.9-5.9cm) LVOT Diameter2.2 (1.8-2.4cm)PWd0.8 (0.7-1.1cm) LA Peclbl16 (18-58mL)LVDs1.9 (2.5-4.0cm) FS (%) 56.5 %SV71.0 ml LVEF(%)87.1 (>50%) Aortic Valve AoV Peak Saqib.102.5cm/sAoV VTI20.7cm AO Peak GR.4.2mmHgLVOT Peak Saqib.86.8cm/s AO Mean GR.2mmHgAVA (VMAX)3.33cm2 Mitral Valve MV E Vvwxcevb71.2cm/sMV E Peak Gr.2mmHg MV DECEL [id number] A Bvgaawqg45.1cm/s MV E Mean Gr.1mmHgE/A Ratio1.3 Pulmonary Valve PV Peak Mngypyva019.4cm/s Tricuspid Valve TR P. [id number]/sTR Peak Gr.17mmHg LEFT VENTRICLE The left ventricle is normal size. There is normal left ventricular wall thickness. The left ventricu lar systolic function is normal, The ejection fraction is 60%. There is normal LV segmental wall junior on. No left ventricle thrombus noted on this study. There is no ventricular septal defect visualized. There is no left ventricular aneurysm. There is no mass noted in the left ventricle. RIGHT VENTRICLE The right ventricle is normal size. There is normal right ventricular wall thickness. The right ventr icular systolic function is normal. ATRIA The left atrium size is normal. The right atrium size is normal. The interatrial septum is intact wit h no evidence for an atrial septal defect or patent foramen ovale as noted on 2-D or Doppler imaging. AORTIC VALVE The aortic valve is normal in structure and function. The aortic valve is trileaflet. Doppler and Col or Flow revealed no significant aortic regurgitation. There is no significant aortic valvular stenosi s. There is no aortic valvular vegetation. MITRAL VALVE The mitral valve is normal in structure and function. There is no evidence of mitral valve prolapse. There is no mitral valve stenosis. Doppler and Color Flow revealed no mitral valve regurgitation note d. TRICUSPID VALVE The tricuspid valve is normal in structure and function. Doppler and Color Flow revealed trace tricus pid regurgitation. There is no tricuspid valve prolapse or vegetation. There is no tricuspid valve st enosis. PULMONIC VALVE The pulmonary valve is normal in structure and function. Doppler and Color Flow revealed no pulmonic valvular regurgitation. There is no pulmonic valvular stenosis. GREAT VESSELS The aortic root is normal in size. The ascending aorta is normal in size. The pulmonary artery is nor mal. The IVC is normal in size and collapses >50% with inspiration. PERICARDIAL EFFUSION There is no pleural effusion. There is no evidence of significant pericardial effusion. Critical Notification Critical Value: No <Conclusion> The left ventricular systolic function is normal, The ejection fraction is 60%. There is normal LV segmental wall motion. Doppler and Color Flow revealed trace tricuspid regurgitation. There is no evidence of significant pericardial effusion. Signed by : Haresh Benitez, Electronically Approved : 02/03/2022 09:56:44
[2022-02-03 10:49] VITALS: BP 134/81
[2022-02-03] MEDS ORDERED: LORA0.5T96 PO (12:09)
--- NOTE | 2022-02-03 12:27 | PDOC2 ---
CONSULT Date of Consult Date of Consult DATE: 02/03/22 TIME: 12:20 Reason for Consult Reason for Consult: ACIDOSIS Referring Physician Referring Physician: JUAN A Identification/Chief Complaint Chief Complaint SYNCOPE Source Source: Chart review, Patient History of Present Illness Reason for Visit: THIS IS A 46 YR OLD WITH A SYNCOPAL EPISODE. CURRENTLY UNDERGOING CARDIOLOGY EVALUATION. RENAL CONSULT DUE TO MET ACIDOSIS. HE HAS A HX OF ADPKD. CR NL. UA NEG FOR PROTEIN. SAW DR VILLAGRAN AT [facility] SEVERAL YEARS AGO BUT HAS NOT HAD ANY FOLLOW UP SINCE THEN Past Medical History Renal/: Other (PKD) Past Surgical History Past Surgical History: Hernia Repair, Other (vasecomy) Family History Family History: Heart Disease (grandparents), Other (MOTHER HAS PKD, SHE HAS HAD A KIDNEY [place] ABOUT 8 YEARS AGO) Social History No ALCOHOL: none Drugs: None Lives: with Family Current Problem List Problem List Problems Medical Problems: (1) Bradycardia Status: Acute (2) Syncope Status: Acute Current Medications Current Medications Current Medications Sodium Chloride 1,000 ml @ 999 mls/hr 1X ONCE IV Last administered on 02/02/22at 10:03; Start 02/02/22 at 10:00; Stop 02/02/22 at 11:00; Status DC Atropine Sulfate (ATROPINE 0.5mg SYRINGE) 0.5 mg STK-MED ONCE .ROUTE ; Start 02/02/22 at 10:08; Stop 02/02/22 at 10:09; Status DC Atropine Sulfate (ATROPINE 1mg SYRINGE) 1 mg STK-MED ONCE .ROUTE ; Start 02/02/22 at 10:09; Stop 02/02/22 at 10:10; Status DC Atropine Sulfate (ATROPINE 1mg SYRINGE) 1 mg 1X ONCE IV Last administered on 02/02/22at 10:13; Start 02/02/22 at 10:30; Stop 02/02/22 at 10:31; Status DC Sennosides (Senna) 17.2 mg PRN BID PRN PO CONSTIPATION; Start 02/02/22 at 11:45 Docusate Sodium (Colace) 100 mg PRN DAILY PRN PO HARD STOOLS; Start 02/02/22 at 11:45 Ondansetron HCl (Zofran) 4 mg PRN Q6HRS PRN IVP NAUSEA/VOMITING, 1st CHOICE; Start 02/02/22 at 11:45 Dextrose (Dextrose 50%-Water Syringe) 12.5 gm PRN Q15MIN PRN IV SEE COMMENTS; Start 02/02/22 at 11:45 Sodium Chloride 1,000 ml @ 100 mls/hr Q10H IV Last administered on 02/02/22at 21:33; Start 02/02/22 at 11:45 Acetaminophen (Tylenol) 650 mg PRN Q4HRS PRN PO TEMP OVER 100.4F OR MILD PAIN; Start 02/02/22 at 11:45 Lorazepam (Ativan) 0.5 mg PRN Q6HRS PRN PO ANXIETY / AGITATION; Start 02/02/22 at 11:45 Lorazepam (Ativan Inj) 0.25 mg PRN Q4HRS PRN IV ANXIETY / AGITATION; Start 02/02/22 at 11:45 Enoxaparin Sodium (Lovenox 40mg Syringe) 40 mg Q24H SQ ; Start 02/02/22 at 12:00 Prochlorperazine Edisylate (Compazine) 10 mg PRN Q6HRS PRN IV NAUSEA/VOMITING, 2nd CHOICE; Start 02/02/22 at 11:45 Diphenhydramine HCl (Benadryl) 25 mg PRN Q6HRS PRN IVP ITCHING; Start 02/02/22 at 11:45 Diphenhydramine HCl (Benadryl) 25 mg PRN Q6HRS PRN PO ITCHING; Start 02/02/22 at 11:45 Diphenhydramine HCl (Benadryl) 25 mg PRN QHS PRN PO INSOMNIA, 1st CHOICE; Start 02/02/22 at 11:45 Zolpidem Tartrate (Ambien) 2.5 mg PRN QHS PRN PO INSOMNIA, 2nd CHOICE; Start 02/02/22 at 11:45 Active Scripts Active Ativan (Lorazepam) 0.5 Mg Tablet 0.5 Mg PO PRN Q6HRS PRN 10 Days Allergies Allergies: Coded Allergies: No Known Drug Allergies (Unverified , 02/02/22) ROS Review of System NEG EXCEPT IN HPI General: YES: Fatigue Physical Exam General: Alert, Oriented X3, Cooperative, No acute distress HEENT: Atraumatic Lungs: Clear to auscultation Heart: Regular rate Abdomen: Normal bowel sounds, Soft, No tenderness Extremities: No clubbing Skin: No rashes Neuro: Normal speech Psych/Mental Status: Mental status NL, Mood NL MUSCULOSKELETAL: No joint tenderness, No deformity Vitals VITALS Vital Signs Date Time Temp Pulse Resp B/P (MAP) Pulse Ox O2 Delivery O2 Flow Rate FiO2 02/03/22 10:49 97.4 68 18 134/81 (98) 100 Room Air 97.4 Labs Labs Laboratory Tests Test 02/02/22 09:50 02/02/22 10:00 02/02/22 12:37 Urine Collection Type Unknown Urine Color Yellow Urine Clarity Clear Urine pH 5.5 (<5.0-8.0) Urine Specific [place] 1.025 (1.000-1.030) Urine Protein Negative mg/dL (NEG-TRACE) Urine Glucose (UA) Negative mg/dL (NEG) Urine Ketones (Stick) >=80 mg/dL (NEG) Urine Blood Trace (NEG) Urine Nitrite Negative (NEG) Urine Bilirubin Small (NEG) Urine Urobilinogen Dipstick 0.2 mg/dL (0.2 mg/dL) Urine Leukocyte Esterase Negative (NEG) Urine RBC 0 /HPF (0-2) Urine WBC 0 /HPF (0-4) Urine Squamous Epithelial Cells Few /LPF Urine Bacteria 0 /HPF (0-FEW) Urine Hyaline Casts Occasional /HPF Urine Opiates Screen Neg (NEG) Urine Methadone Screen Neg (NEG) Urine Barbiturates Neg (NEG) Urine Phencyclidine Screen Neg (NEG) Urine Amphetamine/Methamphetamine Neg (NEG) Urine Benzodiazepines Screen Neg (NEG) Urine Cocaine Screen Neg (NEG) Urine Cannabinoids Screen Neg (NEG) Urine Ethyl Alcohol Neg (NEG) White Blood Count 4.9 x10^3/uL (4.0-11.0) Red Blood Count 5.64 x10^6/uL (4.30-5.70) Hemoglobin 16.4 g/dL (13.0-17.5) Hematocrit 48.6 % (39.0-53.0) Mean Corpuscular Volume 86 fL (79-100) Mean Corpuscular Hemoglobin 29 pg (25-35) Mean Corpuscular Hemoglobin Concent 34 g/dL (31-37) Red Cell Distribution Width 13.3 % (11.5-14.5) Platelet Count 330 x10^3/uL (140-400) Neutrophils (%) (Auto) 64 % (31-73) Lymphocytes (%) (Auto) 26 % (24-48) Monocytes (%) (Auto) 6 % (0-9) Eosinophils (%) (Auto) 3 % (0-3) Basophils (%) (Auto) 1 % (0-3) Neutrophils # (Auto) 3.2 x10^3/uL (1.8-7.7) Lymphocytes # (Auto) 1.3 x10^3/uL (1.0-4.8) Monocytes # (Auto) 0.3 x10^3/uL (0.0-1.1) Eosinophils # (Auto) 0.2 x10^3/uL (0.0-0.7) Basophils # (Auto) 0.0 x10^3/uL (0.0-0.2) D-Dimer (Maritza) < 0.27 ug/mlFEU Sodium Level 137 mmol/L (136-145) Potassium Level 4.3 mmol/L (3.5-5.1) Chloride Level 97 mmol/L (98-107) Carbon Dioxide Level 17 mmol/L (21-32) Anion Gap 23 (6-14) Blood Urea Nitrogen 15 mg/dL (8-26) Creatinine 1.2 mg/dL (0.7-1.3) Estimated GFR (Cockcroft-Gault) 65.5 BUN/Creatinine Ratio 13 (6-20) Glucose Level 66 mg/dL (70-99) Calcium Level 9.4 mg/dL (8.5-10.1) Total Bilirubin 0.7 mg/dL (0.2-1.0) Aspartate Amino Transf (AST/SGOT) 26 U/L (15-37) Alanine Aminotransferase (ALT/SGPT) 21 U/L (16-63) Alkaline Phosphatase 73 U/L (46-116) Total Protein 9.3 g/dL (6.4-8.2) Albumin 5.0 g/dL (3.4-5.0) Albumin/Globulin Ratio 1.2 (1.0-1.7) Thyroid Stimulating Hormone (TSH) 2.101 uIU/mL (0.358-3.74) Free Triiodothyronine (T3) pg/mL 2.11 pg/mL (2.18-3.98) SARS-CoV-2 Antigen (Rapid) Negative (NEGATIVE) Laboratory Tests Test 02/02/22 12:37 SARS-CoV-2 Antigen (Rapid) Negative (NEGATIVE) Images Images PATIENT: KENZIE ALTMAN RACCOUNT: [id number] : 1975 LOCATION: [address] [place] [address] AGE: 46 SEX: M EXAM STATUS: ADM IN ORD. PHYSICIAN: GIBRAN VELAZCO MD REASON: Polycystic Kidney Disease PROCEDURE: RENAL COMPLETE BILATERAL US RENAL BILAT History: Polycystic kidney disease. Comparison: None. Technique: Sonographic examination of the kidneys and bladder. Findings: Right kidney: 12.4 cm length. Numerous right renal cysts, measuring up to 2.5 cm diameter. No mass or hydronephrosis. Left kidney: 13.7 cm length. Numerous left renal cysts measuring up to 3.1 cm. no mass or hydronephrosis. Bladder: No distal ureterectasis. No focal wall abnormality. Bilateral ureteral jets identified. Aorta/IVC: Visualized portions are unremarkable. Other: No ascites. Impression: 1. Bilateral renal cysts. No hydronephrosis. Electronically signed by: Nguyễn Chahal MD (02/02/2022 4:26 PM) [id number] Assessment/Plan Assessment/Plan IMP AG MET ACIDOSIS ADPKD SYNCOPE PLAN CONSIDER MRI BRAIN-R/O ANEURYSM ACIDOSIS DUE TO PKD-WILL NEED TO TAKE NAHCO3 DIALY SUGGESTED OP RENAL F/U TO PT CARDIOLOGY EVAL WILL FOLLOW BRENDA MOON MD Feb 03, 2022 12:27
--- NOTE | 2022-02-03 13:21 | NUR ---
DISCHARGED PATIENT TO HOME. DISCHARGE INSTRUCTIONS GIVEN. PIV AND HEART MONITOR GIVEN. ESCORTED PATIENT OFF UNIT PER PATIENT AMBULATION INTO A PRIVATE VEHICLE.
[2022-02-03] MEDS ORDERED: SODIUM BICARBONATE 650 MG TABLET. PO SCH (14:00)
--- NOTE | 2022-02-03 14:59 | DS ---
DATE OF DISCHARGE: 02/03/2022 ADMISSION DIAGNOSIS: Syncope. DISCHARGE DIAGNOSES: Resolving vasovagal syncope with bradycardia, history of chronic renal failure and polycystic kidney disease, history of hernia repair and vasectomy. HOSPITAL COURSE: The patient is a pleasant middle-aged male who states he was arguing with his and then did not feel well afterwards. He did have a syncopal episode. He then went to his doctor. His doctor sent him to get his blood drawn and he was noted to have another syncopal episode and became bradycardic down to 27. He was admitted for observation. We consulted Cardiology. I spoke with Dr. Benitez this morning. He thinks the patient may have had a vasovagal response, but would like to set up a loop recorder. Clinically, the patient looks great this morning. I saw and examined him. We plan to discharge. He is going to get a loop recorder. DISPOSITION: Home. ACTIVITY: As tolerated. DIET: Low sodium. DISCHARGE MEDICATIONS: Please see the MRAD, p.r.n. Ativan 0.5 q. 6. TOTAL TIME: 32 minutes. [facility] [place] DR: Maryanne TID: [id number]
== END 2022-02-03 13:20 | disposition home or self-care (01) | DRG 312 ==
LOC: ER 09:24 → 6 SOUTH 11:28
PROVIDERS: ADMIT Internal Medicine; ATTEND Internal Medicine
DX: R55 Syncope and collapse (principal); E87.2 Acidosis; Q61.2 Polycystic kidney, adult type; R00.1 Bradycardia, unspecified; E16.2 Hypoglycemia, unspecified; N18.9 Chronic kidney disease, unspecified; Z20.822 Contact with and (suspected) exposure to COVID-19
CPT/HCPCS: 36415; 71045; 76770; 80053; 80307; 81001; 84443; 84481; 85025; 85379; 87426; 93005; 93306; 96374; 96376; J0461; J7030; U0003; 99285-25; C8929; G0378

== ENCOUNTER → 2022-02-16 | Outpatient (CLI) | payer OTHER ==
[2022-02-02 15:00] VITALS: BP 110/64
[~2022-02-16] MED LIST: LORA0.5T96 PO
--- NOTE | 2022-02-16 14:38 | CARD ---
MR#: [id number] Date of Study: 02/16/2022 Ordering Physician: CHAD BENITEZ, Referring Physician: CHAD BENITEZ, Tech: APPROVED REPORT PROCEDURE: Successful implantation of Biotronik Biomonitor III loop recorder INDICATIONS: Syncope, bradycardia r/o sick sinus syndrome PROCEDURE DETAILS: An informed consent was obtained from patient. Patient was brought to the procedure suite and her le ft chest and shoulder were prepped and draped in the usual fashion. 20 mL of 2% lidocaine was infilt rated into the skin and subcutaneous tissues for local anesthesia. An incision was made in the left third intercostal space 1 inch from midsternal line and using introducer and deploy provided with the kit, a Biot[employer]ik Biomonitor III loop recorder serial number [id number] was placed in the subcutaneous tissue. Hemostasis was secured. Patient tolerated the procedure well. There were no immediate com plications. CONCLUSION: Successful implantation of Biotronik Biomonitor III loop recorder for syncope and bradycardia to rule out sick sinus syndrome Signed by : Chad Benitez, Electronically Approved : 02/16/2022 14:37:51
== END | disposition home or self-care (01) ==
LOC: LINQ 11:49
PROVIDERS: ATTEND Internal Medicine Cardiovascular Disease
DX: R55 Syncope and collapse (principal); R00.1 Bradycardia, unspecified; N18.9 Chronic kidney disease, unspecified; Z87.891 Personal history of nicotine dependence; Z79.899 Other long term (current) drug therapy; Z98.890 Other specified postprocedural states
CPT/HCPCS: 33285; C1764